=== PATIENT | male | born 1990 | race Caucasian/White ===

== ENCOUNTER 2022-05-01 12:34 | Emergency (ER) | payer OTHER ==
[~2022-05-01] VITALS: Ht 175.3 cm; Wt 73.5 kg
--- NOTE | 2022-05-01 12:48 | NUR ---
BIBRA 76 FROM [facility] C/O NECK PAIN S/P SYNCOPE. BLOOD GLUCOSE 97 ON SCENE. 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 AAOX4. VITAL SIGNS WNL. PT ADMITS TO "KICKING OFF FENTANYL".
[2022-05-01] MEDS ORDERED: CLONIDINE HCL 0.1 MG TABLET ONE (13:36)
--- NOTE | 2022-05-01 13:38 | NUR ---
Patient discharged to home in stable condition. Written and verbal after care instructions given. Patient verbalizes understanding of instruction.
[2022-05-01] MEDS: LORAZEPAM 1 MG TABLET PO ONE (13:39)
[2022-05-01] MEDS: CLONIDINE HCL 0.1 MG TABLET PO ONE (13:39)
--- NOTE | 2022-05-01 13:40 | NUR ---
CLONIDINE AND ATIVAN PO GIVEN INDICATED. DISCHARGED TO [facility] IN STABLE CONDITION, ACCOMPANIED BY 2 Deborah. PT VERBALIZED UNDERSTANDING OF INSTRUCTIONS.
[2022-05-01 13:41] VITALS: BP 140/83
== END 2022-05-01 13:43 ==
LOC: ER 12:45
DX: F11.23 Opioid dependence with withdrawal (principal); R19.7 Diarrhea, unspecified; Z98.890 Other specified postprocedural states